=== PATIENT | male | born 1940 | race Caucasian/White ===

== ENCOUNTER 2017-03-26 15:30 | Observation (INO) | payer OTHER ==
[~2017-03-26] VITALS: Ht 177.8 cm; Wt 83.5 kg
[2017-03-26 15:33] VITALS: BP 135/75; PULSE 61; RESP 14; TEMP 98.4; O2SAT 96
[2017-03-26] MEDS ORDERED: SODIUM CHLORIDE 0.9% FLUSH 10 ML FLUSH IV FLUSH PRN ×2 (16:00→22:00)
[2017-03-26 16:12] VITALS: O2SAT 95
--- NOTE | 2017-03-26 16:12 | PD ---
HPI Chief Complaint: Medical Clearance Time Seen by Provider: 15:54 Travel History International Travel<30 days: No Contact w/Intl Traveler<30days: No Traveled to known affect area: No History of Present Illness HPI 76-year-old male patient with history of Parkinson's disorder, presents to the ER today with , apparently has been told by his neurologist, to the ER, has been having several months history of general weakness, falls according to his , more weak on the right leg than the left leg. He denies any fevers, chest pains, shortness of breath, or any other symptoms. His last fall was about a month ago according to his . His also reports that he has been having auditory and visual hallucinations, depression. Modifying Factors: None Associated Signs & Symptoms: Worsening general weakness, frequent falls, hallucinations, depression Risk Factors: Elderly, Parkinson's disorder PFSH Past Medical History Hx Anticoagulant Therapy: Yes Cerebrovascular Accident: Yes Diabetes: Yes Social History Tobacco Use: No Allergies-Medications (Allergen,Severity, Reaction): Coded Allergies: No Known Allergies (Verified Allergy, Mild, 03/26/17) Reported Meds & Prescriptions Reported Meds & Active Scripts Active Review of Systems Except as stated in HPI: all other systems reviewed are Neg Physical Exam Narrative GENERAL: Well-developed elderly white male patient currently in mild distress. Awake and oriented 3 SKIN: Focused skin assessment warm/dry. HEAD: Atraumatic. Normocephalic. EYES: Pupils equal and round. No scleral icterus. No injection or drainage. ENT: No nasal bleeding or discharge. Mucous membranes pink and moist. NECK: Trachea midline. No JVD. CARDIOVASCULAR: Regular rate and rhythm. No murmur appreciated. RESPIRATORY: No accessory muscle use. Clear to auscultation. Breath sounds equal bilaterally. GASTROINTESTINAL: Abdomen soft, non-tender, nondistended. Hepatic and splenic margins not palpable. MUSCULOSKELETAL: No obvious deformities. No clubbing. No cyanosis. No edema. NEUROLOGICAL: Awake and lethargic. No obvious cranial nerve deficits. Generalized weakness, no focal sensory deficits. Normal speech. PSYCHIATRIC: Appropriate mood and affect; insight and judgment normal. Data Data Last Documented VS Vital Signs Date Time Temp Pulse Resp B/P (MAP) Pulse Ox O2 Delivery O2 Flow Rate FiO2 03/26/17 16:12 95 03/26/17 15:33 98.4 61 14 Orders Orders Electrocardiogram (03/26/17 15:58) Complete Blood Count With Diff (03/26/17 15:58) Comprehensive Metabolic Panel (03/26/17 15:58) Prothrombin Time / Inr (Pt) (03/26/17 15:58) Act Partial Throm Time (Ptt) (03/26/17 15:58) Troponin I (03/26/17 15:58) Thyroid Stimulating Hormone (03/26/17 15:58) Urinalysis - C+S If Indicated (03/26/17 15:58) Ct Brain W/O Iv Contrast(Rout) (03/26/17 15:58) Blood Glucose (03/26/17 15:58) Ecg Monitoring (03/26/17 15:58) Iv Access Insert/Monitor (03/26/17 15:58) Oximetry (03/26/17 15:58) Sodium Chloride 0.9% Flush (Ns Flush) (03/26/17 16:00) Methylprednisolone So Succ Inj (Solumedr (03/26/17 19:15) Labs Laboratory Tests Test 03/26/17 16:15 White Blood Count 6.4 TH/MM3 Red Blood Count 4.24 MIL/MM3 Hemoglobin 12.9 GM/DL Hematocrit 38.1 % Mean Corpuscular Volume 90.0 FL Mean Corpuscular Hemoglobin 30.5 PG Mean Corpuscular Hemoglobin Concent 33.9 % Red Cell Distribution Width 13.8 % Platelet Count 182 TH/MM3 Mean Platelet Volume 8.6 FL Neutrophils (%) (Auto) 65.2 % Lymphocytes (%) (Auto) 19.3 % Monocytes (%) (Auto) 9.6 % Eosinophils (%) (Auto) 5.3 % Basophils (%) (Auto) 0.6 % Neutrophils # (Auto) 4.2 TH/MM3 Lymphocytes # (Auto) 1.2 TH/MM3 Monocytes # (Auto) 0.6 TH/MM3 Eosinophils # (Auto) 0.3 TH/MM3 Basophils # (Auto) 0.0 TH/MM3 CBC Comment DIFF FINAL Differential Comment Prothrombin Time 11.0 SEC Prothromb Time International Ratio 1.1 RATIO Activated Partial Thromboplast Time 25.2 SEC Blood Urea Nitrogen 24 MG/DL Creatinine 1.11 MG/DL Random Glucose 177 MG/DL Total Protein 6.9 GM/DL Albumin 3.5 GM/DL Calcium Level 9.0 MG/DL Alkaline Phosphatase 81 U/L Aspartate Amino Transf (AST/SGOT) 18 U/L Alanine Aminotransferase (ALT/SGPT) 8 U/L Total Bilirubin 0.5 MG/DL Sodium Level 141 MEQ/L Potassium Level 3.7 MEQ/L Chloride Level 104 MEQ/L Carbon Dioxide Level 29.7 MEQ/L Anion Gap 7 MEQ/L Estimat Glomerular Filtration Rate 64 ML/MIN Troponin I LESS THAN 0.02 NG/ML Thyroid Stimulating Hormone 3rd Gen 1.980 uIU/ML MDM Medical Decision Making Medical Screen Exam Complete: Yes Emergency Medical Condition: Yes Medical Record Reviewed: Yes Interpretation(s) EKG shows NSR, no ST elevation or depression, and no arrhythmias. No significant T-wave inversions. Last [address] 03/26/17 1558 Signed Impressions: Service Date/Time: Sunday, March 26, 2017 16:20 - CONCLUSION: 1. No acute intracranial hemorrhage. 2. Bilateral cortical atrophy 3. Chronic sinus disease. Kaden Logan MD Laboratory Tests Test 03/26/17 16:15 Red Blood Count 4.24 MIL/MM3 (4.50-5.90) Hemoglobin 12.9 GM/DL (13.0-17.0) Hematocrit 38.1 % (39.0-51.0) Monocytes (%) (Auto) 9.6 % (0.0-8.0) Eosinophils (%) (Auto) 5.3 % (0.0-4.0) Blood Urea Nitrogen 24 MG/DL (7-18) Random Glucose 177 MG/DL (74-106) Alanine Aminotransferase (ALT/SGPT) 8 U/L (12-78) Estimat Glomerular Filtration Rate 64 ML/MIN (>89) Troponin I LESS THAN 0.02 NG/ML Differential Diagnosis General weakness, hallucination, depression, frequent falls: Psychosis versus worsening dementia versus worsening Parkinson's disorder versus acute intracranial injuries Narrative Course Patient is generally weak, barely able to sit up from bed. CAT scan the brain is negative for any signs of acute intracranial processes. Metabolic panel did not show significant metabolic issues. UA is pending. Physician Communication Physician Communication Case is signed out at [address] Montes pending UA, likely needs to be admitted as an observation, doing poorly as an outpatient. Diagnosis Primary Impression: General weakness Additional Impression: Parkinson's disease not affecting current episode of care Admitting Information Admitting Physician Requests: Admit Bharath Hein MD Mar 26, 2017 16:12
--- NOTE | 2017-03-26 16:41 | RADRPT ---
EXAM DATE/TIME: 03/26/2017 16:20 [facility] COMPARISON: No previous studies available for comparison. INDICATIONS : Dizziness, multiple falls and hallucinations for one month. RADIATION DOSE: 56.35 CTDIvol (mGy) MEDICAL HISTORY : Stroke. Parkinsons. diabetes SURGICAL HISTORY : None. ENCOUNTER: Initial ACUITY: 1 day PAIN SCALE: 0/10 LOCATION: Bilateral head TECHNIQUE: Multiple contiguous axial images were obtained of the head. Using automated exposure control and adj ustment of the mA and/or kV according to patient size, radiation dose was kept as low as reasonably a chievable to obtain optimal diagnostic quality images. DICOM format image data is available electro nically for review and comparison. FINDINGS: CEREBRUM: The ventricles are normal for age. There is bilateral cortical atrophy and chronic white matter rivers es characteristic of patients age. No evidence of midline shift, mass lesion, hemorrhage or acute in farction. No extra-axial fluid collections are seen. POSTERIOR FOSSA: The cerebellum and brainstem are intact. The 4th ventricle is midline. The cerebellopontine angle i s unremarkable. EXTRACRANIAL: The visualized portion of the orbits is intact. There is chronic sinus disease in the left maxillary sinus and frontal sinuses bilaterally SKULL: The calvaria is intact. No evidence of skull fracture. CONCLUSION: 1. No acute intracranial hemorrhage. 2. Bilateral cortical atrophy 3. Chronic sinus disease. Kaden Logan MD on March 26, 2017 at 16:38 Board Certified Radiologist. This report was verified electronically.
[2017-03-26 16:45] LABS: APTT (PATIENT) 25.2 SEC (24.3-30.1); AUTOMATED NEUTROPHIL # 4.2 TH/MM3 (1.8-7.7); BASOPHIL % 0.6 % (0.0-2.0); EOSINOPHIL # 0.3 TH/MM3 (0-0.4); EOSINOPHIL % 5.3 % (0.0-4.0); HEMATOCRIT 38.1 % (39.0-51.0); HEMO FLAGS DIFF FINAL; INTERNATIONAL NORMALIZED RATIO 1.1 RATIO; LYMPH % 19.3 % (9.0-44.0); LYMPHOCYTE # 1.2 TH/MM3 (1.0-4.8); MEAN CORPUSCULAR HEMOGLOBIN 30.5 PG (27.0-34.0); MEAN CORPUSCULAR HGB CONC 33.9 % (32.0-36.0); MONO % 9.6 % (0.0-8.0); NEUT % 65.2 % (16.0-70.0); PLATELET COUNT 182 TH/MM3 (150-450); RED BLOOD COUNT 4.24 MIL/MM3 (4.50-5.90); RED CELL DISTRIBUTION WIDTH 13.8 % (11.6-17.2); WHITE BLOOD COUNT 6.4 TH/MM3 (4.0-11.0)
[2017-03-26 17:08] LABS: ALT (GPT) 8 U/L (12-78); ANION GAP 7 MEQ/L (5-15); AST (GOT) 18 U/L (15-37); BICARBONATE 29.7 MEQ/L (21.0-32.0); BLOOD UREA NITROGEN 24 MG/DL (7-18); CHLORIDE 104 MEQ/L (98-107); GLOMERULAR FILTRATION RATE 64 ML/MIN (>89); POTASSIUM 3.7 MEQ/L (3.5-5.1); SODIUM (NA) 141 MEQ/L (136-145)
[2017-03-26 17:18] LABS: ALKALINE PHOSPHATASE 81 U/L (45-117); TOTAL BILIRUBIN ADULT 0.5 MG/DL (0.2-1.0)
[2017-03-26] MEDS ORDERED: methylPREDNISolone SOD SUCC 125 MG/2 ML VIAL IV PUSH ONE (19:15)
--- NOTE | 2017-03-26 19:39 | PD ---
Physical Exam Date Seen by Provider: Mar 26, 2017 Time Seen by Provider: 19:38 Narrative Accepted in transfer of care from Dr. Hein Data Data Last Documented VS Vital Signs Date Time Temp Pulse Resp B/P (MAP) Pulse Ox O2 Delivery O2 Flow Rate FiO2 03/26/17 19:55 60 16 128/66 (86) 96 Room Air 03/26/17 15:33 98.4 Orders Orders Electrocardiogram (03/26/17 15:58) Complete Blood Count With Diff (03/26/17 15:58) Comprehensive Metabolic Panel (03/26/17 15:58) Prothrombin Time / Inr (Pt) (03/26/17 15:58) Act Partial Throm Time (Ptt) (03/26/17 15:58) Troponin I (03/26/17 15:58) Thyroid Stimulating Hormone (03/26/17 15:58) Urinalysis - C+S If Indicated (03/26/17 15:58) Ct Brain W/O Iv Contrast(Rout) (03/26/17 15:58) Blood Glucose (03/26/17 15:58) Ecg Monitoring (03/26/17 15:58) Iv Access Insert/Monitor (03/26/17 15:58) Oximetry (03/26/17 15:58) Sodium Chloride 0.9% Flush (Ns Flush) (03/26/17 16:00) Methylprednisolone So Succ Inj (Solumedr (03/26/17 19:15) Admit Order (Ed Use Only) (03/26/17 ) Vital Signs (Adult) Q4H (03/26/17 21:26) Diet Heart Healthy (03/27/17 Breakfast) Activity Oob With Assistance (03/26/17 21:26) Notify Dr: Other (03/26/17 21:26) Labs Laboratory Tests Test 03/26/17 16:15 03/26/17 19:53 White Blood Count 6.4 TH/MM3 Red Blood Count 4.24 MIL/MM3 Hemoglobin 12.9 GM/DL Hematocrit 38.1 % Mean Corpuscular Volume 90.0 FL Mean Corpuscular Hemoglobin 30.5 PG Mean Corpuscular Hemoglobin Concent 33.9 % Red Cell Distribution Width 13.8 % Platelet Count 182 TH/MM3 Mean Platelet Volume 8.6 FL Neutrophils (%) (Auto) 65.2 % Lymphocytes (%) (Auto) 19.3 % Monocytes (%) (Auto) 9.6 % Eosinophils (%) (Auto) 5.3 % Basophils (%) (Auto) 0.6 % Neutrophils # (Auto) 4.2 TH/MM3 Lymphocytes # (Auto) 1.2 TH/MM3 Monocytes # (Auto) 0.6 TH/MM3 Eosinophils # (Auto) 0.3 TH/MM3 Basophils # (Auto) 0.0 TH/MM3 CBC Comment DIFF FINAL Differential Comment Prothrombin Time 11.0 SEC Prothromb Time International Ratio 1.1 RATIO Activated Partial Thromboplast Time 25.2 SEC Blood Urea Nitrogen 24 MG/DL Creatinine 1.11 MG/DL Random Glucose 177 MG/DL Total Protein 6.9 GM/DL Albumin 3.5 GM/DL Calcium Level 9.0 MG/DL Alkaline Phosphatase 81 U/L Aspartate Amino Transf (AST/SGOT) 18 U/L Alanine Aminotransferase (ALT/SGPT) 8 U/L Total Bilirubin 0.5 MG/DL Sodium Level 141 MEQ/L Potassium Level 3.7 MEQ/L Chloride Level 104 MEQ/L Carbon Dioxide Level 29.7 MEQ/L Anion Gap 7 MEQ/L Estimat Glomerular Filtration Rate 64 ML/MIN Troponin I LESS THAN 0.02 NG/ML Thyroid Stimulating Hormone 3rd Gen 1.980 uIU/ML Urine Color YELLOW Urine Turbidity CLEAR Urine pH 7.0 Urine Specific [place] 1.021 Urine Protein NEG mg/dL Urine Glucose (UA) NEG mg/dL Urine Ketones NEG mg/dL Urine Occult Blood NEG Urine Nitrite NEG Urine Bilirubin NEG Urine Urobilinogen LESS THAN 2.0 MG/DL Urine Leukocyte Esterase NEG Urine WBC 1 /hpf Microscopic Urinalysis Comment CATH-CULT NOT IND MDM Medical Record Reviewed: Yes Supervised Visit with JAVI: No Interpretation(s) Last Impressions Head CT 03/26/17 1558 Signed Impressions: Service Date/Time: Sunday, March 26, 2017 16:20 - CONCLUSION: 1. No acute intracranial hemorrhage. 2. Bilateral cortical atrophy 3. Chronic sinus disease. Kaden Logna MD CBC & BMP Diagram 03/26/17 16:15 Total Protein 6.9, Albumin 3.5, Calcium Level 9.0, Alkaline Phosphatase 81, Aspartate Amino Transf (AST/SGOT) 18, Alanine Aminotransferase (ALT/SGPT) 8 L, Total Bilirubin 0.5 Vital Signs Date Time Temp Pulse Resp B/P (MAP) Pulse Ox O2 Delivery O2 Flow Rate FiO2 03/26/17 19:55 60 16 128/66 (86) 96 Room Air 03/26/17 16:12 95 03/26/17 15:33 98.4 61 14 135/75 (95) 96 Differential Diagnosis Accepted in transfer of care from Dr. Hein; please refer to her dictation Narrative Course Accepted in transfer of care from Dr. Hein; for OBS Labs resulted without focality CT brain noncontrast reveals no acute intracranial process; patient resting comfortably at this time at bedside aware of imaging and lab results; in view of progressive worsening weakness frequent falls visual and auditory hallucinations patient was placed in observation this is discussed with [facility] MD Physician Communication Physician Communication discussed with Dr Ernst Diagnosis Primary Impression: General weakness Additional Impression: Parkinson's disease not affecting current episode of care Admitting Information Admitting Physician Requests: Observation Milly Montes MD Mar 26, 2017 19:39
[2017-03-26 19:55] VITALS: BP 128/66; PULSE 60; RESP 16; O2SAT 96
[2017-03-26 20:15] LABS: BLOOD, URINE NEG (NEG); GLUCOSE,URINE NEG (NEG); KETONE, URINE NEG (NEG); NITRITE,URINE NEG (NEG); URINE COLOR YELLOW (YELLW/STRAW)
[2017-03-26 20:16] LABS: COMMENT (UR) CATH-CULT NOT IND; CULTURE IF INDICATED CATH CULTURE NOT IND
--- NOTE | 2017-03-26 21:33 | EKG ---
Date Performed: 03/26/2017 Time Performed: 16:05:07 PTAGE: 76 years EKG: Sinus rhythm WITH FIRST DEGREE AV BLOCK NONSPECIFIC ST DEPRESSION ABNORMAL ECG NO PREVIOUS TRACING DOCTOR: Miguelito Loja Interpretating Date/Time 03/26/2017 21:31:31
--- NOTE | 2017-03-26 21:50 | HHI.HP ---
[facility] Service [facility] Primary Care Physician Unknown Admission Diagnosis Weakness; parkinson's Diagnoses: (1) Parkinson disease Diagnosis: Principal (2) Recurrent falls Diagnosis: Principal (3) Dehydration Diagnosis: Principal (4) DM (diabetes mellitus) Diagnosis: Principal Travel History International Travel<30 Days: No Contact w/Intl Traveler <30 Da: No Traveled to Known Affected Are: No History of Present Illness This is a 76-year-old male with PMH of HTN, Parkinson's Disease, h/o CVA and DM who presented to the ER for recurrent falls x2 months. Per , pt has had approx 3 falls this month alone, now w/ visual/auditory hallucinations as well. She is unable to tell me what medications he takes. Following w/ Dr. Calixto as outpatient, states was referred to ER for eval by Neurologist today for ongoing symptoms. On arrival, CBC essentially unremarkable. GFR 64. BUN 24, no previous labs for comparison. Troponin negative. INR 1.1. UA negative. CT Head with no acute findings. Pt w/ significant gait instability upon ambulation, unable to care for him at home, unsafe discharge at this time. Review of Systems Except as stated in HPI: all other systems reviewed are Neg ROS: 14 point review of systems otherwise negative. Past Family Social History Past Medical History PMH: HTN, Parkinson's Disease, h/o CVA and DM Past Surgical History PAST SURGICAL HISTORY: None Allergies: Coded Allergies: No Known Allergies (Verified Allergy, Mild, 03/26/17) Family History PAST FAMILY HISTORY: Reviewed. No h/o DM or CAD Social History PAST SOCIAL HISTORY: Negative for alcohol, tobacco or drugs. Physical Exam Vital Signs Vital Signs Date Time Temp Pulse Resp B/P (MAP) Pulse Ox O2 Delivery O2 Flow Rate FiO2 03/26/17 19:55 60 16 128/66 (86) 96 Room Air 03/26/17 16:12 95 03/26/17 15:33 98.4 61 14 135/75 (95) 96 Physical Exam PE: GENERAL: Pleasant elderly white male in no acute distress. HEENT: PERRLA, EOMI. No scleral icterus or conjunctival pallor. No lid lag or facial droop. CARDIOVASCULAR: Regular rate and rhythm. No obvious murmurs to auscultation. No chest tenderness to palpation. RESPIRATORY: No obvious rhonchi or wheezing. Clear to auscultation. Breath sounds equal bilaterally. GASTROINTESTINAL: Abdomen soft, non-tender, nondistended. BS normal. MUSCULOSKELETAL: Extremities without clubbing, cyanosis, or edema. No obvious deformities. NEUROLOGICAL: Awake, alert. No focal neurologic deficits. Moving both upper and lower extremities spontaneously. Laboratory Laboratory Tests Test 03/26/17 16:15 03/26/17 19:53 White Blood Count 6.4 Red Blood Count 4.24 Hemoglobin 12.9 Hematocrit 38.1 Mean Corpuscular Volume 90.0 Mean Corpuscular Hemoglobin 30.5 Mean Corpuscular Hemoglobin Concent 33.9 Red Cell Distribution Width 13.8 Platelet Count 182 Mean Platelet Volume 8.6 Neutrophils (%) (Auto) 65.2 Lymphocytes (%) (Auto) 19.3 Monocytes (%) (Auto) 9.6 Eosinophils (%) (Auto) 5.3 Basophils (%) (Auto) 0.6 Neutrophils # (Auto) 4.2 Lymphocytes # (Auto) 1.2 Monocytes # (Auto) 0.6 Eosinophils # (Auto) 0.3 Basophils # (Auto) 0.0 CBC Comment DIFF FINAL Differential Comment Prothrombin Time 11.0 Prothromb Time International Ratio 1.1 Activated Partial Thromboplast Time 25.2 Blood Urea Nitrogen 24 Creatinine 1.11 Random Glucose 177 Total Protein 6.9 Albumin 3.5 Calcium Level 9.0 Alkaline Phosphatase 81 Aspartate Amino Transf (AST/SGOT) 18 Alanine Aminotransferase (ALT/SGPT) 8 Total Bilirubin 0.5 Sodium Level 141 Potassium Level 3.7 Chloride Level 104 Carbon Dioxide Level 29.7 Anion Gap 7 Estimat Glomerular Filtration Rate 64 Troponin I LESS THAN 0.02 Thyroid Stimulating Hormone 3rd Gen 1.980 Urine Color YELLOW Urine Turbidity CLEAR Urine pH 7.0 Urine Specific [place] 1.021 Urine Protein NEG Urine Glucose (UA) NEG Urine Ketones NEG Urine Occult Blood NEG Urine Nitrite NEG Urine Bilirubin NEG Urine Urobilinogen LESS THAN 2.0 Urine Leukocyte Esterase NEG Urine WBC 1 Microscopic Urinalysis Comment CATH-CULT NOT IND Result Diagram: 03/26/17 1615 03/26/17 1615 Caprini VTE Risk Assessment Caprini VTE Risk Assessment: No/Low Risk (score <= 1) Caprini Risk Assessment Model Point Value = 1 Point Value = 2 Point Value = 3 Point Value = 5 Age 41-60 Minor surgery BMI > 25 kg/m2 Swollen legs Varicose veins or History of unexplained or recurrent spontaneous Oral contraceptives or hormone replacement Sepsis (< 1 month) Serious lung disease, including pneumonia (< 1 month) Abnormal pulmonary function Acute myocardial infarction Congestive heart failure (< 1 month) History of inflammatory bowel disease Medical patient at bed rest Age 61-74 Arthroscopic surgery Major open surgery (> 45 min) Laparoscopic surgery (> 45 min) Malignancy Confined to bed (> 72 hours) Immobilizing plaster cast Central venous access Age >= 75 History of VTE Family history of VTE Factor V Leiden Prothrombin [id number] Lupus anticoagulant Anticardiolipin antibodies Elevated serum homocysteine Heparin-induced thrombocytopenia Other congenital or acquired thrombophilia Stroke (< 1 month) Elective arthroplasty Hip, pelvis, or leg fracture Acute spinal cord injury (< 1 month) Prophylaxis Regimen Total Risk Factor Score Risk Level Prophylaxis Regimen 0-1 Low Early ambulation 2 Moderate Order ONE of the following: *Sequential Compression Device (SCD) *Heparin 5000 units SQ BID 3-4 Higher Order ONE of the following medications: *Heparin 5000 units SQ TID *Enoxaparin/Lovenox 40 mg SQ daily (WT < 150 kg, CrCl > 30 mL/min) *Enoxaparin/Lovenox 30 mg SQ daily (WT < 150 kg, CrCl > 10-29 mL/min) *Enoxaparin/Lovenox 30 mg SQ BID (WT < 150 kg, CrCl > 30 mL/min) AND/OR *Sequential Compression Device (SCD) 5 or more Highest Order ONE of the following medications: *Heparin 5000 units SQ TID (Preferred with Epidurals) *Enoxaparin/Lovenox 40 mg SQ daily (WT < 150 kg, CrCl > 30 mL/min) *Enoxaparin/Lovenox 30 mg SQ daily (WT < 150 kg, CrCl > 10-29 mL/min) *Enoxaparin/Lovenox 30 mg SQ BID (WT < 150 kg, CrCl > 30 mL/min) AND *Sequential Compression Device (SCD) Assessment and Plan Problem List: (1) Recurrent falls ICD Code: R29.6 - Repeated falls (2) Parkinson disease ICD Code: G20 - Parkinson's disease (3) Dehydration ICD Code: E86.0 - Dehydration (4) DM (diabetes mellitus) ICD Code: E11.9 - Type 2 diabetes mellitus without complications Assessment and Plan A/P: 1. Recurrent Falls: reports ongoing falls at home x2 months, fall x3 this month alone, no LOC or head trauma reported, possibly related to Parkinson' s. CT Head w/ no acute findings, images reviewed by me. +gait instability, unsafe discharge home at this time. PT for eval/tx. Consult Case Management for assistance w/ possible placement. 2. Parkinson's Disease: Gait instability in addition to auditory/visual hallucination, possibly medication effects, however unable to tell me what medications he is on. Follows w/ Dr. Calixto, will consult Dr. Calixto for further eval. 3. Dehydration: GFR 64, BUN 24. U/a negative. IVF for hydration, repeat labs in am. 4. DM: Sliding scale w/ Accu-Cheks. 5. DVT Prophylaxis: SCD/Teds. 6. Social work for d/c planning as needed 7. Case discussed w/ ER physician at length. Ramonita Ernst MD Mar 26, 2017 21:50
[2017-03-26] MEDS ORDERED: LACTULOSE SYRUP 20 GM/30 ML CUP PO PRN (22:00)
[2017-03-26] MEDS ORDERED: ONDANSETRON HCL 4 MG/2 ML VIAL IVP PRN (22:00)
[2017-03-26] MEDS ORDERED: SENNOSIDES 8.6 MG TAB PO PRN (22:00)
[2017-03-26] MEDS ORDERED: DEXTROSE 50% IN WATER 50 ML VIAL(D50) IV PUSH PRN (22:00)
[2017-03-26] MEDS ORDERED: MAGNESIUM HYDROXIDE SUSP 30 ML CUP PO PRN (22:00)
[2017-03-26] MEDS ORDERED: BISACODYL 10 MG SUPP RECTAL PRN (22:00)
[2017-03-26] MEDS ORDERED: ACETAMINOPHEN/HYDROcodone 325 MG/10 MG TAB PO PRN (22:00)
[2017-03-26] MEDS ORDERED: ACETAMINOPHEN 325 MG TAB PO PRN (22:00)
[2017-03-26] MEDS ORDERED: ACETAMINOPHEN/HYDROcodone 325 MG/5 MG TAB PO PRN (22:00)
[2017-03-26] MEDS ORDERED: GLUCAGON 1 MG/ML VIAL OTHER PRN (22:00)
[2017-03-26 22:40] VITALS: BP 151/73; PULSE 68; RESP 17; TEMP 98.6; O2SAT 94
[2017-03-27] MEDS ORDERED: TRAZ50TA12 PO (00:16)
[2017-03-27] MEDS ORDERED: METF500T PO (00:16)
[2017-03-27] MEDS ORDERED: AMLO5TAB2 PO ×2 (00:16)
[2017-03-27] MEDS ORDERED: ATOR40TA16 PO (00:16)
[2017-03-27] MEDS ORDERED: CETI10 PO (00:16)
[2017-03-27] MEDS ORDERED: BUPR75TA PO (00:16)
[2017-03-27] MEDS ORDERED: VITA2000 PO (00:16)
[2017-03-27] MEDS ORDERED: TAMS0.4C4 PO (00:16)
[2017-03-27] MEDS ORDERED: SERT-129 PO (00:16)
[2017-03-27] MEDS ORDERED: CARB25TA9 PO (00:16)
[2017-03-27] MEDS ORDERED: METO-309 PO (00:16)
[2017-03-27] MEDS ORDERED: MECL-62 PO (00:16)
[2017-03-27] MEDS ORDERED: LOSA100T PO (00:16)
[2017-03-27] MEDS ORDERED: SERT1POW3 (00:16)
[2017-03-27] MEDS ORDERED: HYDR25TA5 PO (00:20)
[2017-03-27] MEDS ORDERED: ASPI1TAB57 PO (00:24)
[2017-03-27 03:55] VITALS: BP 160/74; PULSE 63; RESP 17; TEMP 98.1; O2SAT 95
[2017-03-27 07:19] LABS: AUTOMATED NEUTROPHIL # 4.4 TH/MM3 (1.8-7.7); BASOPHIL % 0.5 % (0.0-2.0); EOSINOPHIL # 0.4 TH/MM3 (0-0.4); EOSINOPHIL % 5.2 % (0.0-4.0); HEMATOCRIT 39.3 % (39.0-51.0); HEMO FLAGS DIFF FINAL; LYMPH % 22.1 % (9.0-44.0); LYMPHOCYTE # 1.6 TH/MM3 (1.0-4.8); MEAN CELL VOLUME 90.4 FL (80.0-100.0); MEAN CORPUSCULAR HEMOGLOBIN 30.3 PG (27.0-34.0); MEAN CORPUSCULAR HGB CONC 33.6 % (32.0-36.0); MONO % 10.7 % (0.0-8.0); NEUT % 61.5 % (16.0-70.0); PLATELET COUNT 170 TH/MM3 (150-450); RED BLOOD COUNT 4.35 MIL/MM3 (4.50-5.90); RED CELL DISTRIBUTION WIDTH 13.8 % (11.6-17.2); WHITE BLOOD COUNT 7.1 TH/MM3 (4.0-11.0)
[2017-03-27 07:49] LABS: ANION GAP 7 MEQ/L (5-15); AST (GOT) 14 U/L (15-37); BICARBONATE 29.4 MEQ/L (21.0-32.0); BLOOD UREA NITROGEN 24 MG/DL (7-18); CHLORIDE 105 MEQ/L (98-107); GLOMERULAR FILTRATION RATE 65 ML/MIN (>89); POTASSIUM 3.5 MEQ/L (3.5-5.1); SODIUM (NA) 141 MEQ/L (136-145)
[2017-03-27 07:53] LABS: ALKALINE PHOSPHATASE 81 U/L (45-117); ALT (GPT) 23 U/L (12-78); TOTAL BILIRUBIN ADULT 0.5 MG/DL (0.2-1.0)
[2017-03-27 07:55] VITALS: BP 157/76; PULSE 71; RESP 18; TEMP 97.8; O2SAT 93
[2017-03-27] MEDS: INSULIN ASPART SUPPLEMENTAL SCALE SQ SCH ×4 (08:00→21:00)
--- NOTE | 2017-03-27 08:18 | MB ---
cc: [employer] DATE OF CONSULTATION: 03/27/2017 REASON FOR CONSULTATION: Patient is seen in neurological consultation. He is 76-year-old describing some difficulty with balance, falls, weakness. He is somewhat vague. He follows with Dr. Calixto and was advised to come to the hospital apparently after calling yesterday. There is a history of Parkinson's disease and diabetes. History of stroke a many years ago. He has had some recent falls and also recently at times is having some hallucinations. He hears people talking and he looks around and sees nobody. This seems to be relatively mild. There is apparent history of sleep apnea. He says he takes carbidopa / Levodopa three times a day. PHYSICAL EXAMINATION: NEUROLOGIC EXAMINATION: On exam he was awake, alert pleasant, cooperative. He is well oriented this morning though he has some difficulty giving me more specific history. He did not know exact name of his medications. His ocular movements and visual will were full. Slight left Psoas, He moves all four extremities grossly equally, raises arms and legs with some difficulty raising arms proximally but mild. He resisted with both lower extremities without any obvious focal deficits. He has reflexes of the elbows and knees but trace or absent at the ankles and plantar responses equivocal. Positions are preserved in distal lower extremities. He has a he was reportedly very unstable and needed a lot of assistance walking with two staff members. RADIOLOGIC: He had a CT brain yesterday showing no acute abnormality. LABORATORY FINDINGS: CBC very much unremarkable. Today sodium, potassium normal. Glucose 100 and yesterday +177. BUN 24, creatinine 1.09. Urinalysis negative. ASSESSMENT 1. Recurrent falls. 2. Generalized weakness and difficulty with gait and balance. 3. Parkinson's. 4. At this point he is not having much of Parkinson's tremor or rigidity. 5. The CT brain is unremarkable. PLAN: I am going to check an MRI brain and cervical spine, and physical therapy is looking into activities and I think this will be most helpful. He has had some hallucinations, perhaps related to the levodopa, carvidopa. This medication is not being started and we probably could let him go for the time-being without Parkinson's medications. He has some diabetic neuropathy but this is not the main culprit for his gait and balance and falls. I will follow the neurological course. Thank you for asking us to assist in his care. MD Tin Eller /7:57 AM /8:04 AM
[2017-03-27] MEDS ORDERED: LORazepam 0.5 MG TAB PO ONE (09:45)
[2017-03-27] MEDS: DOCUSATE SODIUM 50 MG/SENNA 8.6 MG TAB PO SCH ×2 (09:52→21:00)
[2017-03-27] MEDS: SODIUM CHLORIDE 0.9% FLUSH 10 ML FLUSH IV FLUSH SCH (09:52)
--- NOTE | 2017-03-27 12:15 | HHI.PR ---
Subjective Remarks This is a follow up for Parkinson disease with debilitating, Mr. Aquino resting in bed eating his lunch, he is pleasant, his was at the bedside she told me he did slightly better with the PT today Objective Vitals Vital Signs Date Time Temp Pulse Resp B/P (MAP) Pulse Ox O2 Delivery O2 Flow Rate FiO2 03/27/17 07:55 97.8 71 18 157/76 (103) 93 03/27/17 03:55 98.1 63 17 160/74 (102) 95 03/26/17 22:40 98.6 68 17 151/73 (99) 94 03/26/17 22:08 03/26/17 19:55 60 16 128/66 (86) 96 Room Air 03/26/17 16:12 95 03/26/17 15:33 98.4 61 14 135/75 (95) 96 Result Diagram: 03/27/17 0545 03/27/17 0545 Objective Remarks GENERAL: 76 years old pleasant elderly male resting in bed in no acute distress HEENT: PERRLA, EOMI. No scleral icterus or conjunctival pallor. No lid lag or facial droop. CARDIOVASCULAR: Regular rate and rhythm. No obvious murmurs to auscultation. No chest tenderness to palpation. RESPIRATORY: No obvious rhonchi or wheezing. Clear to auscultation. Breath sounds equal bilaterally. GASTROINTESTINAL: Abdomen soft, non-tender, nondistended. BS normal. MUSCULOSKELETAL: Extremities without clubbing, cyanosis, or edema. No obvious deformities. NEUROLOGICAL: Awake, alert. No focal neurologic deficits. Moving both upper and lower extremities spontaneously. A/P Problem List: (1) Recurrent falls ICD Code: R29.6 - Repeated falls (2) Parkinson disease ICD Code: G20 - Parkinson's disease (3) Dehydration ICD Code: E86.0 - Dehydration (4) DM (diabetes mellitus) ICD Code: E11.9 - Type 2 diabetes mellitus without complications Assessment and Plan 1. Recurrent Falls: reports ongoing falls at home x2 months, fall x3 this month alone, no LOC or head trauma reported, possibly related to Parkinson' s. CT Head w/ no acute findings, images reviewed by me. +gait instability, unsafe discharge home at this time. PT for eval/tx. Consult Case Management for assistance w/ possible placement. 2. Parkinson's Disease: Gait instability in addition to auditory/visual hallucination, possibly medication effects, however unable to tell me what medications he is on. Appreciate neurology consultation, will do MRA and MRI cervical spine, recommended possibly holding on starting levodopa or carbidopa due to history of hallucination, neurology will follow the course 3. Dehydration: GFR 64, BUN 24. U/a negative. IVF for hydration, G monitoring labs 4. DM: Sliding scale w/ Accu-Cheks. 5. DVT Prophylaxis: SCD/Teds. Discharge Planning When cleared by neurology Krysta Norris MD Mar 27, 2017 12:15
--- NOTE | 2017-03-27 12:19 | RADRPT ---
EXAM DATE/TIME: 03/27/2017 11:14 [facility] COMPARISON: No previous studies available for comparison. INDICATIONS : Hallucinations. MEDICAL HISTORY : Diabetes mellitus type 2. Hypertension. Parkinson's. SURGICAL HISTORY : Coronary artery stent. ENCOUNTER: Initial ACUITY: 1 day PAIN SCORE: 0/10 LOCATION: cranial Please note a normal MRA of the brain does not entirely exclude the possibility of a small aneurysm, nor the possibility of distal intracranial vessel disease. TECHNIQUE: 3D time of flight MRA was performed. Source images, multiplanar STS MIP, and 3D volume MIP reconstru ctions were reviewed. FINDINGS: Anterior circulation: Distal intracranial internal carotid arteries are patent with flow extending to the middle and anteri or cerebral arteries. There is no evidence for aneurysm, vessel truncation or stenosis, and no eviden ce for vascular malformation. Posterior circulation: Symmetric distal vertebral arteries with flow extending to basilar artery. There is no evidence for aneurysm, vessel truncation or stenosis, and no evidence for vascular malformation. CONCLUSION: 1. Unremarkable MRA examination of the brain. Garfield Moore MD on March 27, 2017 at 12:15 Board Certified Radiologist. This report was verified electronically.
--- NOTE | 2017-03-27 12:28 | RADRPT ---
EXAM DATE/TIME: 03/27/2017 11:14 [facility] COMPARISON: No previous studies available for comparison. INDICATIONS : Dysarthria. MEDICAL HISTORY : Diabetes mellitus type 2. Hypertension. Parkinson's. SURGICAL HISTORY : Coronary artery stent. ENCOUNTER: Initial ACUITY: 1 day PAIN SCORE: 0/10 LOCATION: Paraspinal TECHNIQUE: Multiplanar, multisequence MRI examination of the cervical spine was performed. FINDINGS: VERTEBRAE: Normal vertebral body height. Diffusely heterogeneous degenerative marrow signal. ALIGNMENT: No evidence of subluxation. CORD: Normal configuration and signal. POST FOSSA: The cerebellar tonsils are normal in position. C2-C3: The thecal sac has a normal configuration. There is no evidence of disc herniation or spinal canal s tenosis. The neural foramina are patent bilaterally. C3-C4: The posterior disc osteophyte complex and mild to moderate left facet arthropathy. Mild effacement of the anterior thecal sac. No significant neural foraminal stenosis. C4-C5: Posterior disc osteophyte complex with bilateral facet arthropathy. Central canal narrowing to approx imately 8 mm. Mild to moderate right neural foraminal narrowing. C5-C6: Posterior disc osteophyte complex with bilateral facet arthropathy. Central canal narrowing to approx imately 9 mm with effacement of the anterior thecal sac. Mild to moderate left neural foraminal narro wing. C6-C7: Posterior disc osteophyte complex and bilateral facet arthropathy. Effacement the anterior thecal sac with central canal measuring 9 mm. Mild bilateral neural foraminal narrowing. C7-T1: Posterior disc osteophyte complex with mild effacement of the anterior thecal sac. CONCLUSION: 1. Advanced multilevel degenerative spondylosis of the cervical spine with moderate central canal santos rowing most prominently at C4-5. 2. Please see above for detailed description of each level. Garfield Moore MD on March 27, 2017 at 12:21 Board Certified Radiologist. This report was verified electronically.
[2017-03-27] MEDS: SERTRALINE HCL 100 MG TAB PO SCH (13:12)
[2017-03-27] MEDS: METOPROLOL TARTRATE 50 MG TAB PO SCH (13:12)
[2017-03-27] MEDS: LOSARTAN 50 MG TAB PO SCH (13:12)
[2017-03-27 16:12] VITALS: BP 135/62; PULSE 73; RESP 18; TEMP 98.2; O2SAT 97
[2017-03-27 20:00] VITALS: BP 157/74; PULSE 71; RESP 22; TEMP 98.7; O2SAT 95
[2017-03-28] VITALS (8 sets, daily range): BP systolic 124–155; BP diastolic 63–82; PULSE 55–62; RESP 20–22; TEMP 97.9–98.2; O2SAT 55–96
[2017-03-28] MEDS: ATORVASTATIN 40 MG TAB PO SCH ×2 (00:15→21:16)
[2017-03-28] MEDS: traZODone HCL 50 MG TAB PO SCH ×2 (00:15→21:15)
[2017-03-28] MEDS: SODIUM CHLORIDE 0.9% FLUSH 10 ML FLUSH IV FLUSH SCH ×3 (00:15→21:15)
[2017-03-28] MEDS: METOPROLOL TARTRATE 50 MG TAB PO SCH ×3 (00:16→21:16)
[2017-03-28] MEDS: INSULIN ASPART SUPPLEMENTAL SCALE SQ SCH ×4 (08:00→21:00)
[2017-03-28] MEDS: SERTRALINE HCL 100 MG TAB PO SCH (12:22)
[2017-03-28] MEDS: amLODIPine BESYLATE 5 MG TAB PO SCH (12:23)
[2017-03-28] MEDS: DOCUSATE SODIUM 50 MG/SENNA 8.6 MG TAB PO SCH ×2 (12:23→21:16)
[2017-03-28] MEDS: LOSARTAN 50 MG TAB PO SCH (12:24)
[2017-03-28] MEDS: ASPIRIN EC 81 MG TABEC PO SCH (12:24)
--- NOTE | 2017-03-28 15:25 | HHI.PR ---
Subjective Remarks Follow-up on patient with current falls. Patient seen and examined. Patient states he feels well today. Reports good appetite. Denies any nausea, vomiting or abdominal pain. He denies any dizziness, lightheadedness, fever, chills, cough, shortness of breath or chest pain. He denies any hallucinations. Patient has not been up with PT today. Objective Vitals Vital Signs Date Time Temp Pulse Resp B/P (MAP) Pulse Ox O2 Delivery O2 Flow Rate FiO2 03/28/17 08:23 98.2 55 20 155/70 (98) 55 03/28/17 03:47 97.9 60 22 140/70 (93) 95 03/28/17 00:17 61 03/28/17 00:00 98.0 62 22 143/80 (101) 95 03/27/17 20:00 98.7 71 22 157/74 (101) 95 03/27/17 16:12 98.2 73 18 135/62 (86) 97 Result Diagram: 03/27/17 0545 03/27/17 0545 Imaging Last Impressions Head Magnetic Resonance Angiography 03/27/17 0000 Signed Impressions: Service Date/Time: Monday, March 27, 2017 11:14 - CONCLUSION: 1. Unremarkable MRA examination of the brain. Garfield Moore MD Cervical Spine MRI 03/27/17 0000 Signed Impressions: Service Date/Time: Monday, March 27, 2017 11:14 - CONCLUSION: 1. Advanced multilevel degenerative spondylosis of the cervical spine with moderate central canal narrowing most prominently at C4-5. 2. Please see above for detailed description of each level. Garfield Moore MD Head CT 03/26/17 1558 Signed Impressions: Service Date/Time: Sunday, March 26, 2017 16:20 - CONCLUSION: 1. No acute intracranial hemorrhage. 2. Bilateral cortical atrophy 3. Chronic sinus disease. Kaden Logan MD Objective Remarks GENERAL: Well-nourished, well-developed elderly male patient in [place]. Appears younger than stated age. at the bedside. Awake and alert. SKIN: Warm and dry. HEAD: Normocephalic. Atraumatic. EYES: EOMI. No scleral icterus. No injection or drainage. ENT: No nasal bleeding or discharge. Mucous membranes pink and moist. NECK: Trachea midline. CARDIOVASCULAR: Regular rate and rhythm. S1, S2 noted. No murmur appreciated. RESPIRATORY: Nonlabored. Clear to auscultation. Breath sounds equal bilaterally. GASTROINTESTINAL: Abdomen soft, non-tender, nondistended. Normoactive bowel sounds x4. MUSCULOSKELETAL: No obvious deformities. Extremities without clubbing, cyanosis , or edema. NEUROLOGICAL: Awake and alert. Able to move all extremities spontaneously. Normal speech. PSYCHIATRIC: Appropriate mood and affect; insight and judgment normal. Medications and IVs Current Medications Medications (Trade) Dose Ordered Sig/Breann Route Start Time Stop Time Status Last Admin (D50w (Vial) Inj) 50 ml UNSCH PRN IV PUSH 03/26/17 22:00 (Glucagon Inj) 1 mg UNSCH PRN OTHER 03/26/17 22:00 (NovoLOG SUPPLEMENTAL SCALE) 1 ACHS SLIDING SCALE SQ 03/27/17 08:00 (NS Flush) 2 ml UNSCH PRN IV FLUSH 03/26/17 22:00 (NS Flush) 2 ml BID IV FLUSH 03/27/17 09:00 03/28/17 09:00 (Zofran Inj) 4 mg Q6H PRN IVP 03/26/17 22:00 (Tylenol) 650 mg Q6H PRN PO 03/26/17 22:00 (Cheriton 5-325 Mg) 1 tab Q4H PRN PO 03/26/17 22:00 (Cheriton 10-325 Mg) 1 tab Q4H PRN PO 03/26/17 22:00 (Pham-Colace) 1 tab BID PO 03/27/17 09:00 03/28/17 12:23 (Milk Of Magnesia Liq) 30 ml Q12H PRN PO 03/26/17 22:00 (Senokot) 17.2 mg Q12H PRN PO 03/26/17 22:00 (Dulcolax Supp) 10 mg DAILY PRN RECTAL 03/26/17 22:00 (Lactulose Liq) 30 ml DAILY PRN PO 03/26/17 22:00 (Norvasc) 5 mg DAILY PO 03/28/17 09:00 03/28/17 12:23 (Ecotrin Ec) 81 mg DAILY PO 03/28/17 09:00 03/28/17 12:24 (Lipitor) 40 mg HS PO 03/27/17 21:00 03/28/17 00:15 (Cozaar) 100 mg DAILY PO 03/27/17 12:30 03/28/17 12:24 (Lopressor) 50 mg BID PO 03/27/17 12:30 03/28/17 12:22 (Zoloft) 100 mg DAILY PO 03/27/17 12:30 03/28/17 12:22 (Desyrel) 50 mg HS PO 03/27/17 21:00 03/28/17 00:15 A/P Problem List: (1) Recurrent falls ICD Code: R29.6 - Repeated falls (2) Parkinson disease ICD Code: G20 - Parkinson's disease (3) Dehydration ICD Code: E86.0 - Dehydration (4) DM (diabetes mellitus) ICD Code: E11.9 - Type 2 diabetes mellitus without complications Assessment and Plan 1. Recurrent Falls: reports ongoing falls at home x2 months, fall x3 this month alone, no LOC or head trauma reported, possibly related to Parkinson' s or possible orthostatic hypotension secondary to Parkinson medication side effect. CT Head w/ no acute findings, images reviewed by me. +gait instability , unsafe discharge home at this time. PT for eval/tx - recommends OT eval and PT at rehab. Consult Case Management for assistance w/ possible placement and inpatient rehab evaluation. Check orthostatic blood pressure measurements. 2. Parkinson's Disease: Gait instability in addition to auditory/visual hallucination, possibly medication effects, however unable to tell me what medications he is on. Appreciate neurology consultation, MRI cervical spine revealed advanced multilevel degenerative spondylosis of the cervical spine with moderate central canal narrowing most prominently at C4-5, images personally reviewed. Unremarkable MRA of the brain. Patient referred for discharge from a neurology standpoint, recommending patient resume Parkinson's medications. Patient follows with Dr. Calixto as outpatient. 3. Hypertension: Adequately controlled. Continue patient on Norvasc 5mg daily , Losartan 100mg daily, Metoprolol 50mg BID. Follow-up with PCP to continue monitoring of blood pressure. 4. Dehydration: GFR 64, BUN 24. U/a negative. Patient eating well. Creatinine/GFR stable. 5. hx of CVA: Continue on aspirin and statin therapy daily. 6. DM: Sliding scale w/ Accu-Cheks. Blood sugars well controlled. 7. DVT Prophylaxis: Heparin sq Discharge Planning Discharge planning ongoing, case management consulted, inpatient rehabilitation evaluation pending. Attending Statement The exam, history, and the medical decision-making described in the above note were completed with the assistance of the mid-level provider. I reviewed and agree with the findings presented. I attest that I had a [id number] encounter with the patient on the same day, and personally performed and documented my assessment and findings in the medical record. Patient's is at the bedside during the interview. He has no complaints. gen NAD CV RRR. no r/m/g Resp CTA B/L A/P Parkinson's Recurrent falls Patient medically stable for discharge pending placement. Dorothy Leo Mar 28, 2017 15:25 Lisa Bliss MD Mar 28, 2017 16:34
[2017-03-28] MEDS: CARBIDOPA/LEVODOPA 25 MG/100 MG TAB PO SCH (21:16)
[2017-03-28] MEDS: HEPARIN SODIUM - SQ 10,000 UNITS/ML VIAL SQ SCH (21:16)
[2017-03-29 04:12] VITALS: BP 139/75; PULSE 58; RESP 22; TEMP 97.8; O2SAT 94
[2017-03-29] MEDS: CARBIDOPA/LEVODOPA 25 MG/100 MG TAB PO SCH ×3 (05:27→21:18)
[2017-03-29 08:00] VITALS: BP 143/74; PULSE 59; RESP 18; TEMP 97.7; O2SAT 95
--- NOTE | 2017-03-29 09:16 | HHI.DCPOC ---
Discharge Care Plan Diagnosis: (1) Dehydration (2) Parkinson disease (3) General weakness (4) DM (diabetes mellitus) (5) Recurrent falls Goals to Promote Your Health * To prevent worsening of your condition and complications * To maintain your health at the optimal level Directions to Meet Your Goals Take your medications as prescribed Follow your dietary instruction Follow activity as directed Keep your appointments as scheduled Take your immunizations and boosters as scheduled If your symptoms worsen call your PCP, if no PCP go to Urgent Care Center or Emergency Room Smoking is Dangerous to Your Health. Avoid second hand smoke Call the 24-hour hour crisis hotline for domestic abuse at Dorothy Leo Mar 29, 2017 09:16
--- NOTE | 2017-03-29 09:28 | HHI.DS ---
Discharge Summary Admission Date Mar 26, 2017 at 21:27 Discharge Date: Mar 29, 2017 Admitting Diagnosis Weakness; parkinson's (1) Recurrent falls ICD Code: R29.6 - Repeated falls (2) Dehydration ICD Code: E86.0 - Dehydration (3) DM (diabetes mellitus) ICD Code: E11.9 - Type 2 diabetes mellitus without complications (4) General weakness ICD Code: R53.1 - Weakness Status: Acute (5) Parkinson disease ICD Code: G20 - Parkinson's disease (6) Degenerative disc disease, cervical ICD Code: M50.30 - Other cervical disc degeneration, unspecified cervical region (7) Diabetic neuropathy ICD Code: E11.40 - Type 2 diabetes mellitus with diabetic neuropathy, unspecified Procedures None Brief History - From Admission This is a 76-year-old male with PMH of HTN, Parkinson's Disease, h/o CVA and DM who presented to the ER for recurrent falls x2 months. Per , pt has had approx 3 falls this month alone, now w/ visual/auditory hallucinations as well. She is unable to tell me what medications he takes. Following w/ Dr. Calixto as outpatient, states was referred to ER for eval by Neurologist today for ongoing symptoms. On arrival, CBC essentially unremarkable. GFR 64. BUN 24, no previous labs for comparison. Troponin negative. INR 1.1. UA negative. CT Head with no acute findings. Pt w/ significant gait instability upon ambulation, unable to care for him at home, unsafe discharge at this time. CBC/BMP: 03/27/17 0545 03/27/17 0545 Significant Findings Laboratory Tests Test 03/26/17 16:15 03/26/17 19:53 03/27/17 05:45 Red Blood Count 4.24 MIL/MM3 (4.50-5.90) 4.35 MIL/MM3 (4.50-5.90) Hemoglobin 12.9 GM/DL (13.0-17.0) Hematocrit 38.1 % (39.0-51.0) Monocytes (%) (Auto) 9.6 % (0.0-8.0) 10.7 % (0.0-8.0) Eosinophils (%) (Auto) 5.3 % (0.0-4.0) 5.2 % (0.0-4.0) Blood Urea Nitrogen 24 MG/DL (7-18) 24 MG/DL (7-18) Random Glucose 177 MG/DL (74-106) Alanine Aminotransferase (ALT/SGPT) 8 U/L (12-78) Estimat Glomerular Filtration Rate 64 ML/MIN (>89) 65 ML/MIN (>89) Troponin I LESS THAN 0.02 NG/ML Aspartate Amino Transf (AST/SGOT) 14 U/L (15-37) Imaging Last Impressions Head Magnetic Resonance Angiography 03/27/17 0000 Signed Impressions: Service Date/Time: Monday, March 27, 2017 11:14 - CONCLUSION: 1. Unremarkable MRA examination of the brain. Garfield Moore MD Cervical Spine MRI 03/27/17 0000 Signed Impressions: Service Date/Time: Monday, March 27, 2017 11:14 - CONCLUSION: 1. Advanced multilevel degenerative spondylosis of the cervical spine with moderate central canal narrowing most prominently at C4-5. 2. Please see above for detailed description of each level. Garfield Moore MD Head CT 03/26/17 1558 Signed Impressions: Service Date/Time: Sunday, March 26, 2017 16:20 - CONCLUSION: 1. No acute intracranial hemorrhage. 2. Bilateral cortical atrophy 3. Chronic sinus disease. Kaden Logan MD PE at Discharge GENERAL: Well-nourished, well-developed elderly male patient in [facility]. Appears younger than stated age. at the bedside. Awake and alert. Sitting up in hospital bed. Appears comfortable. SKIN: Warm and dry. HEAD: Normocephalic. Atraumatic. EYES: EOMI. No scleral icterus. No injection or drainage. ENT: No nasal bleeding or discharge. Mucous membranes pink and moist. NECK: Trachea midline. CARDIOVASCULAR: Regular rate and rhythm. S1, S2 noted. No murmur appreciated. RESPIRATORY: Nonlabored. Clear to auscultation. Breath sounds equal bilaterally. GASTROINTESTINAL: Abdomen soft, non-tender, nondistended. Normoactive bowel sounds x4. MUSCULOSKELETAL: No obvious deformities. Extremities without clubbing, cyanosis , or edema. NEUROLOGICAL: Awake and alert. Able to move all extremities spontaneously. Normal speech. PSYCHIATRIC: Appropriate mood and affect; insight and judgment normal. Pt update on day of discharge Patient seen and examined. Patient has no new medical complaints. States he feels well. He is looking forward to being discharged to SNF facility. Denies any recurrence of hallucinations. Discussed with nursing staff, no acute issues noted. Patient cleared for discharge from neurologic standpoint and advised to resume Parkinson's medications. Hospital Course Patient admitted with generalized weakness and recurrent falls possibly related to Parkinson's disease. Patient reported gait instability as well as auditory and visual hallucinations, possibly medication side effects. Patient follows with Dr. Calixto as outpatient. CT of the head was obtained without any significant findings. UA negative. BUN 24, GFR 64 indicative of dehydration, patient treated with IV fluids. He was seen in consultation by neurology. MRA brain unremarkable. MRI of the cervical spine revealing multilevel degenerative disc disease with moderate central canal narrowing. Patient eating well. Patient participated with physical therapy who recommended PT at rehabilitation. Case management was consulted to assist with discharge planning. Patient was cleared for discharge from a neurologic standpoint and advised to resume Parkinson's medications. Patient had no recurrence of hallucinations. Patient was discharged to SNF facility. Pt Condition on Discharge: Stable Discharge Disposition: Discharge to SNF Discharge Time: > 30 minutes Discharge Instructions DIET: Follow Instructions for: Heart Healthy Diet, Diabetic Diet Activities you can perform: See Additionl Instruction Other Activity Instructions: per PT recommendations Follow up Referrals: Neurology - 1 Week with Rafael Calixto MD PCP Follow-up - 2-3 Days Continued Medications: Amlodipine (Amlodipine) 5 Mg Tab 5 MG PO DAILY for Blood Pressure Management, #30 TAB [address] (Aspirin 81) 81 Mg Tabdr 81 MG PO DAILY, TAB 0 Refills Atorvastatin (Atorvastatin) 40 Mg Tab 40 MG PO HS for Cholesterol Management, #30 TAB 0 Refills Bupropion HCl (Bupropion HCl) 75 Mg Tab 75 MG PO BID for Control Depression, TAB 0 Refills TID Carbidopa-Levodopa (Carbidopa-Levodopa) 25-100 Mg Tab 1 TAB PO Q8HR for Parkinson Disease Mgmt, #90 TAB 0 Refills Cetirizine (Cetirizine) 10 Mg Tab 10 MG PO DAILY for Allergies, TAB 0 Refills Cholecalciferol (Vitamin D3) 2,000 Unit Cap 2000 UNITS PO DAILY for Nutritional Supplement, #1 BOTTLE 0 Refills Losartan (Losartan) 100 Mg Tab 100 MG PO DAILY for Blood Pressure Management, #30 TAB 0 Refills Meclizine (Meclizine) 25 Mg Tab 25 MG PO DIRECTED PRN for VERTIGO, TAB 0 Refills Metformin (Metformin) 500 Mg Tab 500 MG PO BIDPC for Blood Sugar Management, #60 TAB 0 Refills Metoprolol Tartrate (Lopressor) 50 Mg Tab 50 MG PO BID, #60 TAB 0 Refills Sertraline (Sertraline) 100 Mg Tab 100 MG PO DAILY, #30 TAB 0 Refills Tamsulosin (Tamsulosin) 0.4 Mg Cap 0.4 MG PO HS for Manage Prostate Problems, #30 CAP 0 Refills Trazodone (Trazodone) 50 Mg Tab 50 MG PO HS for Control Depression, #30 TAB 0 Refills Discontinued Medications: Hydrochlorothiazide (Hydrochlorothiazide) 25 Mg Tab 25 MG PO DAILY, #30 TAB 0 Refills Sertraline HCl (Bulk) (Sertraline HCl) 100 % Pow 150 Dorothy Leo Mar 29, 2017 09:28
[2017-03-29] MEDS: HEPARIN SODIUM - SQ 10,000 UNITS/ML VIAL SQ SCH ×2 (09:50→21:18)
[2017-03-29] MEDS: amLODIPine BESYLATE 5 MG TAB PO SCH (09:51)
[2017-03-29] MEDS: DOCUSATE SODIUM 50 MG/SENNA 8.6 MG TAB PO SCH ×2 (09:51→21:18)
[2017-03-29] MEDS: METOPROLOL TARTRATE 50 MG TAB PO SCH ×2 (09:52→21:18)
[2017-03-29] MEDS: LOSARTAN 50 MG TAB PO SCH (09:53)
[2017-03-29] MEDS: SERTRALINE HCL 100 MG TAB PO SCH (09:53)
[2017-03-29] MEDS: INSULIN ASPART SUPPLEMENTAL SCALE SQ SCH ×4 (09:54→21:00)
[2017-03-29] MEDS: ASPIRIN EC 81 MG TABEC PO SCH (09:54)
[2017-03-29] MEDS: SODIUM CHLORIDE 0.9% FLUSH 10 ML FLUSH IV FLUSH SCH ×2 (09:55→21:17)
[2017-03-29 12:30] VITALS: BP 119/60; PULSE 56; RESP 18; TEMP 98.5; O2SAT 94
[2017-03-29 16:00] VITALS: BP 127/71; PULSE 56; RESP 19; TEMP 97.6; O2SAT 94
[2017-03-29 20:16] VITALS: BP 132/60; PULSE 64; RESP 18; TEMP 98.7; O2SAT 95
[2017-03-29] MEDS: traZODone HCL 50 MG TAB PO SCH (21:18)
[2017-03-29] MEDS: ATORVASTATIN 40 MG TAB PO SCH (21:18)
[2017-03-29 21:40] VITALS: O2SAT 95
[2017-03-30 00:35] VITALS: BP 127/67; PULSE 59; RESP 20; TEMP 98.7; O2SAT 92
[2017-03-30 04:14] VITALS: BP 141/70; PULSE 55; RESP 20; TEMP 97.6; O2SAT 93
[2017-03-30] MEDS: CARBIDOPA/LEVODOPA 25 MG/100 MG TAB PO SCH ×2 (06:02→16:30)
[2017-03-30] MEDS: INSULIN ASPART SUPPLEMENTAL SCALE SQ SCH ×2 (08:00→12:00)
[2017-03-30 08:01] VITALS: BP 160/81; PULSE 66; RESP 20; TEMP 97.2; O2SAT 95
[2017-03-30] MEDS: LOSARTAN 50 MG TAB PO SCH (09:02)
[2017-03-30] MEDS: ASPIRIN EC 81 MG TABEC PO SCH (09:02)
[2017-03-30] MEDS: HEPARIN SODIUM - SQ 10,000 UNITS/ML VIAL SQ SCH (09:02)
[2017-03-30] MEDS: DOCUSATE SODIUM 50 MG/SENNA 8.6 MG TAB PO SCH (09:03)
[2017-03-30] MEDS: METOPROLOL TARTRATE 50 MG TAB PO SCH (09:03)
[2017-03-30] MEDS: SERTRALINE HCL 100 MG TAB PO SCH (09:03)
[2017-03-30] MEDS: amLODIPine BESYLATE 5 MG TAB PO SCH (09:03)
[2017-03-30] MEDS: SODIUM CHLORIDE 0.9% FLUSH 10 ML FLUSH IV FLUSH SCH (09:04)
[2017-03-30 11:42] VITALS: BP 141/72; PULSE 65; RESP 18; TEMP 98; O2SAT 93
--- NOTE | 2017-03-30 13:14 | HHI.PR ---
Subjective Remarks Follow up on patient with recurrent falls, Parkinson's disease. Patient seen and examined. Patient's discharge held secondary to awaiting insurance authorization. Patient denies any new medical complaints. States he feels well. Discussed with nursing staff, no acute issues noted. Objective Vitals Vital Signs Date Time Temp Pulse Resp B/P (MAP) Pulse Ox O2 Delivery O2 Flow Rate FiO2 03/30/17 11:42 98.0 65 18 141/72 (95) 93 03/30/17 08:01 97.2 66 20 160/81 (107) 95 03/30/17 04:14 97.6 55 20 141/70 (93) 93 03/30/17 00:35 98.7 59 20 127/67 (87) 92 03/29/17 21:40 95 03/29/17 20:16 98.7 64 18 132/60 (84) 95 03/29/17 16:00 97.6 56 19 127/71 (89) 94 I/O 03/29/17 03/29/17 03/29/17 03/30/17 03/30/17 03/30/17 07:00 15:00 23:00 07:00 15:00 23:00 Output Total 400 ml Balance -400 ml Output Urine Total 400 ml Result Diagram: 03/27/17 0545 03/27/17 0545 Imaging Last Impressions Head Magnetic Resonance Angiography 03/27/17 0000 Signed Impressions: Service Date/Time: Monday, March 27, 2017 11:14 - CONCLUSION: 1. Unremarkable MRA examination of the brain. Garfield Moore MD Cervical Spine MRI 03/27/17 0000 Signed Impressions: Service Date/Time: Monday, March 27, 2017 11:14 - CONCLUSION: 1. Advanced multilevel degenerative spondylosis of the cervical spine with moderate central canal narrowing most prominently at C4-5. 2. Please see above for detailed description of each level. Garfield Moore MD Head CT 03/26/17 1558 Signed Impressions: Service Date/Time: Sunday, March 26, 2017 16:20 - CONCLUSION: 1. No acute intracranial hemorrhage. 2. Bilateral cortical atrophy 3. Chronic sinus disease. Kaden Logan MD Objective Remarks GENERAL: Well-nourished, well-developed elderly male patient in NAD. Appears younger than stated age. Awake and alert. Sitting up in hospital bed. SKIN: Warm and dry. HEAD: Normocephalic. Atraumatic. EYES: EOMI. No scleral icterus. No injection or drainage. ENT: No nasal bleeding or discharge. Mucous membranes pink and moist. NECK: Trachea midline. CARDIOVASCULAR: Regular rate and rhythm. S1, S2 noted. No murmur appreciated. RESPIRATORY: Nonlabored. Clear to auscultation. Breath sounds equal bilaterally. GASTROINTESTINAL: Abdomen soft, non-tender, nondistended. Normoactive bowel sounds x4. MUSCULOSKELETAL: No obvious deformities. Extremities without clubbing, cyanosis , or edema. NEUROLOGICAL: Awake and alert. Able to move all extremities spontaneously. Normal speech. PSYCHIATRIC: Appropriate mood and affect; insight and judgment normal. Procedures None Medications and IVs Current Medications Medications (Trade) Dose Ordered Sig/Breann Route Start Time Stop Time Status Last Admin (D50w (Vial) Inj) 50 ml UNSCH PRN IV PUSH 03/26/17 22:00 (Glucagon Inj) 1 mg UNSCH PRN OTHER 03/26/17 22:00 (NovoLOG SUPPLEMENTAL SCALE) 1 ACHS SLIDING SCALE SQ 03/27/17 08:00 03/29/17 09:54 (NS Flush) 2 ml UNSCH PRN IV FLUSH 03/26/17 22:00 (NS Flush) 2 ml BID IV FLUSH 03/27/17 09:00 03/30/17 09:04 (Zofran Inj) 4 mg Q6H PRN IVP 03/26/17 22:00 (Tylenol) 650 mg Q6H PRN PO 03/26/17 22:00 ([place]idan 5-325 Mg) 1 tab Q4H PRN PO 03/26/17 22:00 ([place]idan 10-325 Mg) 1 tab Q4H PRN PO 03/26/17 22:00 (Pham-Colace) 1 tab BID PO 03/27/17 09:00 03/30/17 09:03 (Milk Of Magnesia Liq) 30 ml Q12H PRN PO 03/26/17 22:00 (Senokot) 17.2 mg Q12H PRN PO 03/26/17 22:00 (Dulcolax Supp) 10 mg DAILY PRN RECTAL 03/26/17 22:00 (Lactulose Liq) 30 ml DAILY PRN PO 03/26/17 22:00 (Norvasc) 5 mg DAILY PO 03/28/17 09:00 03/30/17 09:03 (Ecotrin Ec) 81 mg DAILY PO 03/28/17 09:00 03/30/17 09:02 (Lipitor) 40 mg HS PO 03/27/17 21:00 03/29/17 21:18 (Cozaar) 100 mg DAILY PO 03/27/17 12:30 03/30/17 09:02 (Lopressor) 50 mg BID PO 03/27/17 12:30 03/30/17 09:03 (Zoloft) 100 mg DAILY PO 03/27/17 12:30 03/30/17 09:03 (Desyrel) 50 mg HS PO 03/27/17 21:00 03/29/17 21:18 (Heparin Inj) 5,000 units Q12HR SQ 03/28/17 21:00 03/30/17 09:02 (Sinemet 25-100 Mg) 1 tab Q8HR PO 03/28/17 22:00 03/30/17 06:02 A/P Problem List: (1) Recurrent falls ICD Code: R29.6 - Repeated falls (2) Dehydration ICD Code: E86.0 - Dehydration (3) DM (diabetes mellitus) ICD Code: E11.9 - Type 2 diabetes mellitus without complications (4) General weakness ICD Code: R53.1 - Weakness Status: Acute (5) Parkinson disease ICD Code: G20 - Parkinson's disease (6) Degenerative disc disease, cervical ICD Code: M50.30 - Other cervical disc degeneration, unspecified cervical region (7) Diabetic neuropathy ICD Code: E11.40 - Type 2 diabetes mellitus with diabetic neuropathy, unspecified Assessment and Plan Patient discharged yesterday, 03/30/17, discharge held pending insurance authorization for SNF placement 1. Recurrent Falls: reports ongoing falls at home x2 months, fall x3 this month alone, no LOC or head trauma reported, possibly related to Parkinson' s or possible orthostatic hypotension secondary to Parkinson medication side effect. CT Head w/ no acute findings, images reviewed by me. +gait instability , unsafe discharge home at this time. PT for eval/tx - recommends OT eval and PT at rehab. Consult Case Management for assistance w/ possible placement and inpatient rehab evaluation. Check orthostatic blood pressure measurements. 2. Parkinson's Disease: Gait instability in addition to auditory/visual hallucination, possibly medication effects, however unable to tell me what medications he is on. Appreciate neurology consultation, MRI cervical spine revealed advanced multilevel degenerative spondylosis of the cervical spine with moderate central canal narrowing most prominently at C4-5, images personally reviewed. Unremarkable MRA of the brain. Patient referred for discharge from a neurology standpoint, recommending patient resume Parkinson's medications. Patient follows with Dr. Calixto as outpatient. 3. Hypertension: Adequately controlled. Continue patient on Norvasc 5mg daily , Losartan 100mg daily, Metoprolol 50mg BID. Follow-up with PCP to continue monitoring of blood pressure. 4. Dehydration: GFR 64, BUN 24. U/a negative. Patient eating well. Creatinine/GFR stable. 5. hx of CVA: Continue on aspirin and statin therapy daily. 6. DM: Sliding scale w/ Accu-Cheks. Blood sugars well controlled. Will D/C Accu-Cheks and insulin sliding scale. 7. DVT Prophylaxis: Heparin sq Discussed with patient, nursing staff and Dr. Bliss Discharge Planning Discharged yesterday, discharge held pending insurance authorization for SNF placement Dorothy Leo Mar 30, 2017 13:14
== END 2017-03-30 19:19 | disposition home or self-care (01) ==
LOC: NEPC 15:30 → NEDA 21:27 → NEPGCP 22:03
PROVIDERS: ADMIT Family Medicine; ATTEND Family Medicine
DX: G20 Parkinson's disease (principal); E86.0 Dehydration; R29.6 Repeated falls; R44.1 Visual hallucinations; R44.0 Auditory hallucinations; R26.9 Unspecified abnormalities of gait and mobility; R53.1 Weakness; I44.0 Atrioventricular block, first degree; R94.31 Abnormal electrocardiogram [ECG] [EKG]; R42 Dizziness and giddiness; R47.1 Dysarthria and anarthria; I10 Essential (primary) hypertension; E11.40 Type 2 diabetes mellitus with diabetic neuropathy, unspecified; F32.9 Major depressive disorder, single episode, unspecified; G31.9 Degenerative disease of nervous system, unspecified; G47.30 Sleep apnea, unspecified; M47.812 Spondylosis without myelopathy or radiculopathy, cervical region; M25.78 Osteophyte, vertebrae; M50.30 Other cervical disc degeneration, unspecified cervical region; Z95.5 Presence of coronary angioplasty implant and graft; Z86.73 Personal history of transient ischemic attack (TIA), and cerebral infarction without residual deficits
CPT/HCPCS: 70450; 70544; 72141; 80053; 81001; 82948; 84443; 84484; 85025; 85610; 85730; 93005; 96372; 97116; 97162; 97166; 99285; G0378; G8987; G8988; J1644; J1815